=== PATIENT | male | born 1955 | race African-American/Black ===

== ENCOUNTER → 2024-06-28 | Outpatient (BNVA) | payer BC, SELFPAY | END | disposition home or self-care (01) | PROVIDERS: PCP Specialist; Referring Provider Specialist; Visit Provider Urology | DX: C61 Malignant neoplasm of prostate (principal); N28.1 Cyst of kidney, acquired; N52.9 Male erectile dysfunction, unspecified; Z85.528 Personal history of other malignant neoplasm of kidney | CPT/HCPCS: 99212; G0463 ==